=== PATIENT | male | born 1965 | race Caucasian/White ===

== ENCOUNTER 2016-09-11 19:50 | Emergency (ER) | payer MEDICAID, OTHER ==
[~2016-09-11] VITALS: Ht 167.6 cm; Wt 82.6 kg
[2016-09-11 19:50] VITALS: BP 130/79
[~2016-09-11 19:50] MED LIST: CARBAMAZEPINE400 MG PO; KEPPRA1000 MG PO; TEGRETOL200 MG PO
--- NOTE | 2016-09-11 19:50 | NUR ---
[facility] TO ER OF3
--- NOTE | 2016-09-11 20:01 | NUR ---
PT BIB [facility] FOR PRE-BOOK HX SZ. PT DENIES ANY PAIN, PT DENIES N/V/D; SKIN IS INTACT, PINK/WARM/DRY; AAOX4, PERRL, WITH EVEN AND STEADY GAIT; LUNGS CLEAR BL, BREATHING UNLABORED; HR EVEN AND REGULAR, BL PERIPHERAL PULSES PRESENT; BS ACTIVE X4, NO TENDERNESS TO PALPATION. PT DENIES ANY FEVER, CP, SOB, OR COUGH AT THIS TIME; PT STATES 0/10 PAIN AT THIS TIME; VSS; PATIENT POSITIONED FOR COMFORT; HOB ELEVATED; BEDRAILS UP X2; BED DOWN.
[2016-09-11] MEDS ORDERED: IBUPROFEN 800 MG TAB PO ONE (20:20)
--- NOTE | 2016-09-11 20:23 | NUR ---
Patient discharged with v/s stable. Written and verbal after care instructions given and explained. Patient alert, oriented and verbalized understanding of instructions. Carried with in custody. All questions addressed prior to discharge. ID band removed. Patient advised to follow up with PMD.N0 Rx given. Patient educated on indication of medication including possible reaction and side effects. Opportunity to ask questions provided and answered.
[2016-09-11 20:24] VITALS: BP 130/79
== END 2016-09-11 20:24 ==
LOC: MED 19:50
DX: Z53.21 Procedure and treatment not carried out due to patient leaving prior to being seen by health care provider (principal); R51 Headache; F10.129 Alcohol abuse with intoxication, unspecified

== ENCOUNTER 2018-01-16 11:30 | Emergency (ER) | payer OTHER ==
[~2018-01-16] VITALS: Ht 162.6 cm; Wt 63.5 kg
[~2018-01-16 11:30] MED LIST changes: +CARB200T1 PO; -CARBAMAZEPINE400 MG PO; -KEPPRA1000 MG PO; +LEVE1000 PO; -TEGRETOL200 MG PO
[2018-01-16 11:46] VITALS: BP 143/85
--- NOTE | 2018-01-16 16:06 | NUR ---
PER DR MERINO, PT PLACED ON CHAIR E BY LAYO
--- NOTE | 2018-01-16 16:30 | NUR ---
53YO M BIB MOTHER WITH C/O INTERMITTENT, SHARP LT MID BACK/FLANK PAIN RADIATING TO LUQ X 4 DAYS; DENIES N/V/D OR DIZZINESS, NO REDNESS SWELLING OR BRUSING NOTED. LS CLER THROUGHOUT, BS ACTIVE X4, ABD FIRM FLAT TENDER LUQ. L FLANK TENDER TO TOUCH. ER MD MADE AWARE, PT POSITIONED FOR COMFORT. WILL CONTINUE TO MONITOR, HX; SEIZURE RX; CARGAMAZEPINE, LEVETIRACETAM
--- NOTE | 2018-01-16 17:22 | NUR ---
PT TO CT GIAN IN STABLE CONDITION WITH EXPLOSIVES ENGINEER
[2018-01-16] MEDS: NACL 0.9% 1,000 ML IV SCH (17:46)
[2018-01-16 17:47] LABS: BASOPHILS % (AUTO) 0.1 % (0.0-2.0); EOSINOPHILS % (AUTO) 0.1 % (0.0-4.0); HEMATOCRIT 42.2 % (36-52); HEMOGLOBIN 13.9 g/dL (12.0-18.0); LYMPHOCYTES % (AUTO) 20.3 % (20.5-51.1); MEAN CORPUSCULAR HEMOGLOBIN 29 pg (27-31); MEAN CORPUSCULAR HGB CONC 33 g/dL (33-37); MEAN CORPUSCULAR VOLUME 87.3 fL (80-94); MONOCYTES # (AUTO) 0.5 K/uL (0.8-1.0); MONOCYTES % (AUTO) 9.1 % (1.7-9.3); NEUTROPHILS # (AUTO) 3.6 K/uL (1.8-7.7); NEUTROPHILS % (AUTO) 70.4 % (42.2-75.2); PLATELET COUNT (AUTO) 214 K/uL (140-450); RED BLOOD CELL COUNT(AUTO) 4.83 MIL/uL (4.20-6.10); RED CELL DISTRIBUTION WIDTH 14.9 % (11.6-13.7); WHITE BLOOD COUNT (AUTO) 5.1 K/uL (4.8-10.8)
[2018-01-16] MEDS: KETOROLAC 30 MG/ML VIAL IVP ONE (17:47)
[2018-01-16] MEDS: ONDANSETRON 4 MG/2 ML VIAL IVP ONE (17:47)
--- NOTE | 2018-01-16 17:53 | NUR ---
DR MERINO AT BEDSIDE FOR PT EVALUATION
[2018-01-16 17:56] LABS: ANION GAP 7.5 (8-16); CARBON DIOXIDE 31.5 mmol/L (21-32); CREATININE 0.9 mg/dL (0.7-1.3)
[2018-01-16 18:02] LABS: ALBUMIN 3.3 g/dL (3.4-5.0); TOTAL BILIRUBIN 0.4 mg/dL (0.0-1.0)
[2018-01-16 19:30] LABS: APPEARANCE,URINE CLEAR (CLEAR); BILIRUBIN,URINE NEGATIVE (NEGATIVE); BLOOD, URINE NEGATIVE (NEGATIVE); COLOR,URINE YELLOW (YELLOW); LEUKOCYTE ESTERASE ,URINE NEGATIVE (NEGATIVE); NITRITE, URINE NEGATIVE (NEGATIVE); PH,URINE 6.5 (5.0-9.0); UGLUCOSE NEGATIVE (NEGATIVE)
--- NOTE | 2018-01-16 19:30 | NUR ---
PT RESTING IN BED, VS NOTED, PT REPORTS 1/10 BACK PAIN THAT INCREASES WITH MOVEMENT. ALL NEEDS MET AT THIS TIME.
[2018-01-16 19:56] VITALS: BP 132/69
== END 2018-01-16 19:53 | disposition home or self-care (01) ==
LOC: MED 11:30
DX: R10.32 Left lower quadrant pain (principal); Z79.899 Other long term (current) drug therapy
CPT/HCPCS: 36415; 74176; 80053; 81003; 83690; 85025; 96374; 96375; 99285; J1885; J2405; J7030

== ENCOUNTER 2018-02-04 13:27 | Inpatient (IN) | payer MEDICAID, OTHER ==
[~2018-02-04] VITALS: Ht 152.4 cm; Wt 58.5 kg
--- NOTE | 2018-02-04 13:27 | NUR ---
PT BIBA [facility] TO BED 6
[2018-02-04 13:29] VITALS: BP 130/81
--- NOTE | 2018-02-04 13:29 | NUR ---
PATEINT PICKED UP BY AMBULANCE IN "BACK ALLEY" IN A POSTICTAL STATE WITH NOTED ORAL TRAUMA INCLUDING A SWOLLEN UPPER LEFT LIP. PATIENT STATED HE HAS HX OF EPILPSY DENIES ANY OTHER HISTORY. PT IS AAOX4, VSS AT THIS TIME, BED DOWN, BEDRAIL UP X 1, ER MD AWARE AND NOTIFIED OF PT STATUS. RX KEPPRA
--- NOTE | 2018-02-04 13:57 | NUR ---
Patient being evaluated by physician at bedside.
[2018-02-04] MEDS ORDERED: levETIRAcetam 500 MG TAB PO ONE (14:00)
[2018-02-04] MEDS ORDERED: NACL 0.9% 1,000 ML IV ONE (14:00)
--- NOTE | 2018-02-04 14:29 | NUR ---
PATEINT STARTED SEIZING AT 1422, TURNED ON SIDE AND OXYGEN ADMINISTERED, AND STOPPED AT 1428. PATIENT STABLE. ATIVAN GIVEN ORDERED.
[2018-02-04] MEDS ORDERED: LORazepam 2 MG/ML VIAL IVP ONE (14:30)
--- NOTE | 2018-02-04 14:35 | NUR ---
LAB AT BEDSIDE
[2018-02-04 14:47] LABS: BASOPHILS % (AUTO) 0.2 % (0.0-2.0); HEMATOCRIT 41.2 % (36-52); HEMOGLOBIN 13.3 g/dL (12.0-18.0); LYMPHOCYTES # (AUTO) 1.2 K/uL (2.0-11.5); LYMPHOCYTES % (AUTO) 11.6 % (20.5-51.1); MEAN CORPUSCULAR HEMOGLOBIN 29 pg (27-31); MEAN CORPUSCULAR HGB CONC 32 g/dL (33-37); MEAN CORPUSCULAR VOLUME 88.6 fL (80-94); MONOCYTES # (AUTO) 0.5 K/uL (0.8-1.0); MONOCYTES % (AUTO) 4.9 % (1.7-9.3); NEUTROPHILS # (AUTO) 8.5 K/uL (1.8-7.7); NEUTROPHILS % (AUTO) 83.3 % (42.2-75.2); PLATELET COUNT (AUTO) 231 K/uL (140-450); RED BLOOD CELL COUNT(AUTO) 4.65 MIL/uL (4.20-6.10); WHITE BLOOD COUNT (AUTO) 10.1 K/uL (4.8-10.8)
[2018-02-04 15:00] LABS: ANION GAP 26.7 (8-16); CARBON DIOXIDE 16.3 mmol/L (21-32); CREATININE 1.2 mg/dL (0.7-1.3)
[2018-02-04 15:06] LABS: ALBUMIN 3.7 g/dL (3.4-5.0); TOTAL BILIRUBIN 0.5 mg/dL (0.0-1.0)
[2018-02-04] MEDS ORDERED: POTASSIUM CHLORIDE 10 MEQ TABER PO ONE (15:20)
[2018-02-04] MEDS: DEXT 5% / NACL 0.45% 1,000 ML IV SCH (15:47)
[2018-02-04] MEDS ORDERED: ONDANSETRON 4 MG/2 ML VIAL IVP PRN (15:50)
[2018-02-04] MEDS ORDERED: HYDROcodone/APAP 5/325 MG 1 TAB TAB PO PRN ×2 (15:50)
[2018-02-04] MEDS ORDERED: ACETAMINOPHEN 325 MG TAB PO PRN (15:50)
[2018-02-04] MEDS ORDERED: LORazepam 2 MG/ML VIAL IVP PRN (15:50)
--- NOTE | 2018-02-04 16:41 | NUR ---
PT TAKEN TO FLOOR BY JG DWYER AND EMT CAMMIE
--- NOTE | 2018-02-04 16:45 | NUR ---
PT RECEIVED FROM ED. PT IS AWAKE BUT DROWSY. PT IS ABLE TO AMBULATE WITH ASSISTANCE, HE IS UNSTABLE ON HIS FEET AT THIS TIME. MRSA NARES SWAB OBTAINED. ADMISSION VITAL SIGNS STABLE (BP: 120/77, HR: 76, O2: 100 ON ROOM AIR, TEMP 98.8, RESP: 18) PT HAS A L FA IV, 20 GAUGE. SKIN IS INTACT. PT IS EMIRATI-SPEAKING ONLY. SEIZURE PRECAUTIONS INITIATED. FALL PRECAUTIONS INITIATED. CALL LIGHT WITHIN REACH, BED LOW. WILL CONTINUE TO MONITOR.
--- NOTE | 2018-02-04 16:48 | NUR ---
Patient will be admitted to care of DR. VAZQUEZ. Admited to TELE 121-A. Will go to room 121-A. Belongings list completed. Report to CHILDREN'S TUTOR NURSERY.
--- NOTE | 2018-02-04 18:45 | NUR ---
PT ASLEEP AT THIS TIME. NO S/S OF DISTRESS NOTED.
--- NOTE | 2018-02-04 19:30 | NUR ---
PT REPORT GIVEN AT BEDSIDE TO HOT IRON WORKER NURSE. PT ENDORSED IN STABLE CONDITION.
--- NOTE | 2018-02-04 19:31 | NUR ---
RECEIVED REPORT FROM DAY SHIFT NURSE NEIDA AT BEDSIDE. PT SLEEPING AT THIS TIME. ACCORDING TO DAY SHIFT NURSE, PT IS ABLE TO AMBULATE WITH ASSISTANCE, HE IS UNSTABLE ON HIS FEET AT THIS TIME. PT IS SALVADOREAN-SPEAKING ONLY. PT HAS A LEFT FA IV, 20 GAUGE. SKIN IS INTACT. SEIZURE PRECAUTIONS INITIATED. FALL PRECAUTIONS INITIATED. BED IN LOWEST POSITION, BOTH SIDE RAILS UP, BED BREAKS ON AND ALARM ON. BED SIDE TABLE AND CALL LIGHT ARE WITHIN REACH. WILL CONTINUE TO MONITOR.
[2018-02-04 20:00] VITALS: BP 126/76
--- NOTE | 2018-02-04 20:00 | NUR ---
VITAL SIGNS TAKEN AND TOLERATED WELL. PT CONTINUES TO FEEL DROWSY. NO S/S OF RESPIRATORY DISTRESS OR DISCOMFORT NOTED AT THIS TIME. WILL CONTINUE TO MONITOR.
--- NOTE | 2018-02-04 20:07 | NUR ---
SCHEDULED MEDICATION KEPPRA GIVEN AND TOLERATED WELL. NO S/S OF RESPIRATORY DISTRESS OR DISCOMFORT NOTED AT THIS TIME. WILL CONTINUE TO MONITOR.
[2018-02-04] MEDS ORDERED: levETIRAcetam 500 MG TAB PO SCH (21:00)
--- NOTE | 2018-02-04 22:00 | NUR ---
PT CONTINUES TO SLEEP. NO S/S OF RESPIRATORY DISTRESS OR DISCOMFORT AT THIS TIME. WILL CONTINUE TO MONITOR.
[2018-02-05] VITALS: BP 119/78
--- NOTE | 2018-02-05 | NUR ---
VITAL SIGNS TAKEN AND TOLERATED WELL. PT CONTINUES TO SLEEP. NO S/S OF RESPIRATORY DISTRESS OR DISCOMFORT NOTED AT THIS TIME. WILL CONTINUE TO MONITOR.
[2018-02-05] MEDS: DEXT 5% / NACL 0.45% 1,000 ML IV SCH ×3 (01:47→14:06)
--- NOTE | 2018-02-05 02:00 | NUR ---
PT CONTINUES TO SLEEP. NO S/S OF RESPIRATORY DISTRESS OR DISCOMFORT NOTED AT THIS TIME. WILL CONTINUE TO MONITOR.
[2018-02-05 04:00] VITALS: BP 117/76
--- NOTE | 2018-02-05 04:00 | NUR ---
VITAL SIGNS TAKEN AND TOLERATED WELL. PT CONTINUES TO SLEEP IN BED. NO S/S OF RESPIRATORY DISTRESS OR DISCOMFORT NOTED AT THIS TIME. WILL CONTINUE TO MONITOR.
--- NOTE | 2018-02-05 04:09 | NUR ---
NEW IVF BAG HUNG. PT TOLERATED WELL. NO S/S OF RESPIRATORY DISTRESS OR DISCOMFORT NOTED AT THIS TIME. WILL CONTINUE TO MONITOR.
--- NOTE | 2018-02-05 06:00 | NUR ---
PT CONTINUES TO SLEEP IN BED. NO S/S OF RESPIRATORY DISTRESS OR DISCOMFORT NOTED AT THIS TIME. WILL CONTINUE TO MONITOR.
--- NOTE | 2018-02-05 07:35 | NUR ---
ENDORSED PT CARE TO DAY SHIFT NURSE SONNY FOR CONTINUITY OF CARE.
--- NOTE | 2018-02-05 07:40 | NUR ---
RECEIVED PT FROM TERMINAL GAUGER SUPERVISOR NURSEBLANE, PT IS AWAKE AND LYING ON THE BED WITH SEIZURE PRECAUTION ENFORCED, SIDE RAILS ARE UP AND PADDED, PT HAS AN IV LINE ON THE LEFT FA G. 20 WITH D51/2 NS AT 100ML/HR, INFUSING. NO SOB OR ANY DISTRESS NOTED AND WILL CONTINUE TO MONITOR PT.
[2018-02-05 08:00] VITALS: BP 116/79
[2018-02-05 08:13] LABS: BASOPHILS % (AUTO) 0.2 % (0.0-2.0); EOSINOPHILS % (AUTO) 0.2 % (0.0-4.0); HEMATOCRIT 40.2 % (36-52); HEMOGLOBIN 13.4 g/dL (12.0-18.0); LYMPHOCYTES # (AUTO) 0.9 K/uL (2.0-11.5); LYMPHOCYTES % (AUTO) 17.8 % (20.5-51.1); MEAN CORPUSCULAR HEMOGLOBIN 29 pg (27-31); MEAN CORPUSCULAR HGB CONC 33 g/dL (33-37); MEAN CORPUSCULAR VOLUME 86.6 fL (80-94); MONOCYTES # (AUTO) 0.4 K/uL (0.8-1.0); MONOCYTES % (AUTO) 7.3 % (1.7-9.3); NEUTROPHILS # (AUTO) 3.6 K/uL (1.8-7.7); NEUTROPHILS % (AUTO) 74.5 % (42.2-75.2); PLATELET COUNT (AUTO) 164 K/uL (140-450); RED BLOOD CELL COUNT(AUTO) 4.64 MIL/uL (4.20-6.10); RED CELL DISTRIBUTION WIDTH 15.5 % (11.6-13.7); WHITE BLOOD COUNT (AUTO) 4.8 K/uL (4.8-10.8)
[2018-02-05 08:21] LABS: ALBUMIN 3.3 g/dL (3.4-5.0); ANION GAP 5.5 (8-16); CARBON DIOXIDE 29.6 mmol/L (21-32); CREATININE 0.7 mg/dL (0.7-1.3); POTASSIUM 3.1 mmol/L (3.5-5.1); TOTAL BILIRUBIN 0.9 mg/dL (0.0-1.0)
--- NOTE | 2018-02-05 08:40 | NUR ---
PATIENT HAS BEEN SCREENED AND CATEGORIZED LOW NUTRITION RISK. PATIENT WILL BE SEEN WITHIN 7 DAYS OF ADMISSION. 02/11/[address]
--- NOTE | 2018-02-05 08:45 | NUR ---
PT IS AWAKE AND SEATED ON THE BED, VITAL SIGNS TAKEN AND WITHIN STABLE LIMIOT, MEDUICATIONS GIVEN AND PT TOLERATED IT. WILL MONITOR PT.
[2018-02-05] MEDS ORDERED: levETIRAcetam 500 MG TAB PO SCH (09:00)
[2018-02-05] MEDS ORDERED: carBAMazepine 200 MG TAB PO SCH (09:00)
[2018-02-05] MEDS ORDERED: CARB200T1 PO (10:32)
[2018-02-05] MEDS ORDERED: LEVE1000 PO (10:32)
--- NOTE | 2018-02-05 10:43 | NUR ---
Information Security Manager Note: Assessment correction: Patient's pcp is Eddy Arreola, not Ehsan Harrison.
[2018-02-05 12:00] VITALS: BP 121/80
--- NOTE | 2018-02-05 12:08 | NUR ---
Initial review faxed to [facility].
--- NOTE | 2018-02-05 15:27 | NUR ---
PT WAS GIVEN POTASSIUM 40MEQ FOR THE POTASSIUM LEVEL, OF 3.1 AND PT TOLERATED IT.
[2018-02-05] MEDS ORDERED: POTASSIUM CHLORIDE 20% 40 MEQ/15 ML UDC PO SCH (15:30)
--- NOTE | 2018-02-05 15:48 | NUR ---
IV FLUID WAS STOPPED NOW AND IV LINE WAS REMOVED, PT VERBALIZED REFUSAL TO HAVE A FLU AND PNA VACCINE
[2018-02-05 16:00] VITALS: BP 123/78
--- NOTE | 2018-02-05 16:15 | NUR ---
DISCHARGED INSTRUCTIONS AND TEACHINGS WERE GIVEN TO PT INTERPRETED BY CONTROL SYSTEMS DEVELOPER #[id number] IN [place] AND PT VERBALIZED UNDERSTANDING. ARM BAND AND IV LINE WAS REMOVED.
--- NOTE | 2018-02-05 17:20 | NUR ---
DISCHARGED PT AND ASSISTED TO THE [facility] # [id number], WITH PLANTING MATERIAL UNLOADER'S NAME TARA FRANKLIN, WITH TAXI PLATE # [id number] AND PT WILL BE TRANSPORTED TO HIS MOTHER'S HOUSE IN [address] [place] [address] WITH VOUCHER HANDED TO COMPOUNDER. PT IS STABLE AT THIS TIME.
== END 2018-02-05 17:20 | disposition home or self-care (01) | DRG 53 ==
LOC: MERGE 13:27 → MED 13:27 → MTU 15:47
PROVIDERS: ADMIT Hospitalist; ATTEND Hospitalist
DX: G40.209 Localization-related (focal) (partial) symptomatic epilepsy and epileptic syndromes with complex partial seizures, not intractable, without status epilepticus (principal); E87.2 Acidosis; E87.6 Hypokalemia; S00.512A Abrasion of oral cavity, initial encounter; X58.XXXA Exposure to other specified factors, initial encounter; Y93.89 Activity, other specified; Y92.89 Other specified places as the place of occurrence of the external cause; Y99.8 Other external cause status; Z91.19 Patient's noncompliance with other medical treatment and regimen
CPT/HCPCS: 36415; 80053; 80156; 80173; 82550; 83735; 84100; 85025; 87081; 96361; 96374; 99285; J2060

== ENCOUNTER 2018-10-12 18:38 | Emergency (ER) | payer OTHER ==
[~2018-10-12] VITALS: Ht 167.6 cm; Wt 66.7 kg
--- NOTE | 2018-10-12 19:19 | NUR ---
PT PLACED IN BED 8 BY EMS.
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
[2018-10-12 19:33] VITALS: BP 110/79
[2018-10-12] MEDS ORDERED: levETIRAcetam 500 MG in NACL 0.9% 100 ML IV ONE (20:15)
[2018-10-12] MEDS ORDERED: NACL 0.9% 1,000 ML IV ONE (20:15)
--- NOTE | 2018-10-12 20:30 | NUR ---
PT IS IN DEEP SLEEP. AROUSABLE TO STIMULI. SP02 SAT AT 91% ON RA. PT PLACED ON 2 LPM O2 VIA NC. SPO2 INCREASED TO 98%.
[2018-10-12] MEDS ORDERED: levETIRAcetam 100 MG/ML VIAL IV ONE (20:35)
[2018-10-12 20:36] LABS: BASOPHILS % (AUTO) 0.5 % (0.0-2.0); EOSINOPHILS % (AUTO) 0.5 % (0.0-4.0); HEMATOCRIT 37.7 % (36-52); HEMOGLOBIN 12.5 g/dL (12.0-18.0); LYMPHOCYTES # (AUTO) 1.5 K/uL (2.0-11.5); LYMPHOCYTES % (AUTO) 31.8 % (20.5-51.1); MEAN CORPUSCULAR HEMOGLOBIN 28 pg (27-31); MEAN CORPUSCULAR HGB CONC 33 g/dL (33-37); MEAN CORPUSCULAR VOLUME 85.6 fL (80-94); MONOCYTES # (AUTO) 0.3 K/uL (0.8-1.0); MONOCYTES % (AUTO) 6.6 % (1.7-9.3); NEUTROPHILS # (AUTO) 2.9 K/uL (1.8-7.7); NEUTROPHILS % (AUTO) 60.6 % (42.2-75.2); PLATELET COUNT (AUTO) 205 K/uL (140-450); RED CELL DISTRIBUTION WIDTH 16.2 % (11.6-13.7); WHITE BLOOD COUNT (AUTO) 4.8 K/uL (4.8-10.8)
[2018-10-12 20:51] LABS: ANION GAP 16.8 (8-16); CARBON DIOXIDE 25.3 mmol/L (21-32); CREATININE 0.8 mg/dL (0.7-1.3); POTASSIUM 3.1 mmol/L (3.5-5.1)
[2018-10-12 20:56] LABS: ALBUMIN 3.4 g/dL (3.4-5.0); TOTAL BILIRUBIN 0.4 mg/dL (0.0-1.0)
--- NOTE | 2018-10-12 21:25 | NUR ---
PT IS IN DEEP SLEEP. AROUSABLE TO STIMULI. SKIN PINK, WARM, DRY. BREATHING EVEN, UNLABORED.
--- NOTE | 2018-10-12 22:36 | NUR ---
PT SLEEPING DEEPLY. AROUSABLE TO STIMULI. VSS.
--- NOTE | 2018-10-12 23:11 | NUR ---
FOOD OFFERED. PT REFUSING FOOD AT THIS TIME. PT SLEEPING DEEPLY. AROUSABLE TO STIMULI.
--- NOTE | 2018-10-13 00:18 | NUR ---
PT SLEEPING DEEPLY. AROUSABLE TO STIMULI. VSS. SKIN PINK, WARM, DRY. BREATHING EVEN, UNLABORED.
--- NOTE | 2018-10-13 01:25 | NUR ---
EMPTIED URINAL 500 ML CLEAR YELLOW URINE.
--- NOTE | 2018-10-13 02:38 | NUR ---
PT SLEEPING DEEPLY. AROUSABLE TO STIMULI. VSS. SKIN PINK, WARM, DRY. BREATHING EVEN, UNLABORED.
--- NOTE | 2018-10-13 03:24 | NUR ---
PT SLEEPING DEEPLY. AROUSABLE TO STIMULI. VSS. SKIN PINK, WARM, DRY. BREATHING EVEN, UNLABORED.
--- NOTE | 2018-10-13 04:05 | NUR ---
EMPTIED URINAL 500 ML CLEAR YELLOW URINE.
--- NOTE | 2018-10-13 04:10 | NUR ---
PT AWAKE, ALERT REQUESTING WATER. VSS.
--- NOTE | 2018-10-13 05:30 | NUR ---
PT SLEEPING DEEPLY. AROUSABLE TO STIMULI. VSS. SKIN PINK, WARM, DRY. BREATHING EVEN, UNLABORED.
--- NOTE | 2018-10-13 06:30 | NUR ---
PT STATES HE FEELS BETTER AND IS READY FOR DISCHARGE. STATES HE WILL WALK HOME.
[2018-10-13 07:02] VITALS: BP 122/76
--- NOTE | 2018-10-13 07:02 | NUR ---
Patient discharged with v/s stable. Written and verbal after care instructions given and explained. Patient alert, oriented and verbalized understanding of instructions. Ambulatory with steady gait. All questions addressed prior to discharge. ID band removed. Patient advised to follow up with PMD. Rx of Kevarun given. Patient educated on indication of medication including possible reaction and side effects. Opportunity to ask questions provided and answered.
== END 2018-10-13 07:02 | disposition home or self-care (01) ==
LOC: MED 18:38
DX: S00.83XA Contusion of other part of head, initial encounter (principal); F10.129 Alcohol abuse with intoxication, unspecified; G40.909 Epilepsy, unspecified, not intractable, without status epilepticus; Z71.41 Alcohol abuse counseling and surveillance of alcoholic; Z79.899 Other long term (current) drug therapy; Y90.8 Blood alcohol level of 240 mg/100 ml or more; X58.XXXA Exposure to other specified factors, initial encounter; Y93.89 Activity, other specified; Y92.89 Other specified places as the place of occurrence of the external cause; Y99.8 Other external cause status
CPT/HCPCS: 36415; 80053; 85025; 96365; 99283; G0482; J1953; J7030